=== PATIENT | male | born 1960 | race Native Hawaiian/Other Pacific Islander ===

== ENCOUNTER 2017-06-15 08:52 | Outpatient (CLI) | payer BC | END 2017-06-15 08:53 | disposition home or self-care (01) | LOC: BICCT 08:52 | PROVIDERS: ATTEND Family Medicine | DX: C64.1 Malignant neoplasm of right kidney, except renal pelvis (principal); K57.90 Diverticulosis of intestine, part unspecified, without perforation or abscess without bleeding; Z90.5 Acquired absence of kidney; Z90.49 Acquired absence of other specified parts of digestive tract | CPT/HCPCS: 74176 ==

== ENCOUNTER 2017-06-15 09:12 | Outpatient (CLI) | payer BC | END 2017-06-15 09:13 | disposition home or self-care (01) | LOC: BICRAD 09:12 | PROVIDERS: ATTEND Urology | DX: C64.9 Malignant neoplasm of unspecified kidney, except renal pelvis (principal) | CPT/HCPCS: 71046 ==

== ENCOUNTER 2018-02-21 14:46 | Outpatient (CLI) | payer BC ==
[~2018-02-21 14:46] MED LIST: Gadobenate Dimeglumine 529 MG/1 ML (20ML VIAL) ONE
--- NOTE | 2018-02-22 11:46 | MRI ---
MRI PELVIS WITH AND WITHOUT CONTRAST PROSTATE PROTOCOL: HISTORY: Prostate cancer. Elevated PSA. COMPARISON: None. TECHNIQUE: Multiplanar, multisequence MRI of the pelvis is performed using prostate protocol. The exam was revi ewed on the independent 3D work station. FINDINGS: The prostate measures 5 x 4.9 x 5 cm, for a volume of 59.03 mL. Peripheral zone: There is indistinct hypointensity on the ADC, in the peripheral zone, without a foc ally abnormal area. Transitional zone: At the base of the prostate, near 1 o'clock, extending into the urinary bladder, is a homogeneously, moderately hypointense on T2, 0.9 x 0.7 x 0.8 cm mass. This is within what appea rs to be a BPH nodule. The remainder of the transitional zone is without T2 signal abnormality. Th ere is associated marked increased signal on the diffusion weighted imaging with marked decreased sig nal on the ADC map with a type III-wash-in and wash-out kinetics. This region of interest is marked on the DynaCAD study. Neurovascular bundles: Intact. Lymph nodes: No adenopathy. Bones: On the large field of view T1 weighted sequence, there are no abnormal areas of marrow signal replacement to suggest osseous metastatic disease. Intrapelvic soft tissues: Moderate diverticular disease of the sigmoid colon without active current inflammation. Muscles: Normal. IMPRESSION: 1. PI-RADS 4: High (clinically significant prostate cancer is likely to be present). This is in the transitional zone, at the base of the prostate, extending into the urinary bladder. T his mass measures 0.9 x 0.7 x 0.8 cm, with T2 signal hypointensity and marked increased signal on dif fusion weighted imaging, with low ADC signal. 2. Neurovascular bundle: Intact. 3. No local regional adenopathy. 4. No evidence for osseous metastatic disease. 5 Moderate diverticular disease of the sigmoid colon without active inflammation. 6. Prostatic volume of 59 mL. POS: [facility]
== END 2018-02-21 14:47 | disposition home or self-care (01) ==
LOC: TBSIIMAG 14:46
PROVIDERS: ATTEND Urology
DX: R97.20 Elevated prostate specific antigen [PSA] (principal); N42.9 Disorder of prostate, unspecified; K57.30 Diverticulosis of large intestine without perforation or abscess without bleeding
CPT/HCPCS: 72197; A9579

== ENCOUNTER 2018-02-25 15:05 | Outpatient (CLI) | payer BC ==
[2018-02-25 15:48] LABS: Mean Corpuscular HGB CONC 33.7 g/dL (32.0-36.0); Mean Corpuscular Hemoglobin 28.8 pg (27.0-31.0); Mean Corpuscular Volume 85.5 fL (78.0-98.0); Mean Platelet Volume 9.2 fL (7.4-10.4); Platelet Count 176 thou/uL (130-400); RBC Distribution Width 12.6 % (11.5-14.5); Red Blood Cell (RBC) Count 5.19 mill/uL (4.70-6.10); White Blood Cell (WBC) Count 3.9 thou/uL (4.8-10.8)
[2018-02-25 15:51] LABS: Bilirubin Negative (Negative); Blood, Urine Negative (Negative); Clarity CLEAR (Clear); Glucose, Urine (Dipstick) Negative (Negative); Leukocyte Negative (Negative); Nitrite Negative (Negative); Protein, Urine (Dipstick) Negative (Neg-Trace); Specific Gravity, Urine 1.006 (1.002-1.036); Urobilinogen 0.2 mg/dL (0.2-1.0); pH, Urine 5.5 (5.0-9.0)
[2018-02-25 15:53] LABS: Bacteria/HPF None Seen HPF (None Seen); Hyaline Casts/LPF 0-3 HYALINE CAST LPF (0-3 Hyaline); RBC/HPF 0-3 HPF (0-3); Squamous Epithelial None Seen HPF (0-3); WBC/HPF None Seen HPF (0-3)
[2018-02-25 15:55] LABS: INR-International Normal Ratio 0.9; Prothrombin Time 12.7 SEC (12.0-14.7)
[2018-02-25 16:06] LABS: Anion Gap 12 mmol/L (10-20); BUN (Urea Nitrogen) 16 mg/dL (8.4-25.7); Calc. Creatinine Clearance 0 mL/min (70-130); Calcium 9.3 mg/dL (7.8-10.44); Carbon Dioxide 26 mmol/L (22-29); Chloride 103 mmol/L (98-107); Estimated GFR-MDRD 49; Glucose 109 mg/dL (70-105); Potassium 3.9 mmol/L (3.5-5.1); Sodium 137 mmol/L (136-145)
--- NOTE | 2018-02-25 17:48 | RAD ---
TWO VIEWS OF THE CHEST: 02/25/18 COMPARISON: 06/15/17 HISTORY: Preoperative radiograph. FINDINGS: Two views of the chest show normal sized cardiomediastinal silhouette. There is no evidence of consol idation, mass, or pleural effusion. The bones are unremarkable. IMPRESSION: No evidence of acute cardiopulmonary disease. POS: [facility]
== END 2018-02-25 15:06 | disposition home or self-care (01) ==
LOC: LABBT 15:05
PROVIDERS: ATTEND Urology
DX: Z01.818 Encounter for other preprocedural examination (principal); R97.20 Elevated prostate specific antigen [PSA]; R81 Glycosuria; N40.0 Benign prostatic hyperplasia without lower urinary tract symptoms; N42.32 Atypical small acinar proliferation of prostate; N28.9 Disorder of kidney and ureter, unspecified; Z87.448 Personal history of other diseases of urinary system
CPT/HCPCS: 71046; 80048; 81001; 85027; 85610; 85730; 87081; 87086; 93005; 93010

== ENCOUNTER 2018-03-02 10:01 | Day surgery (SDC) | payer BC ==
[2018-02-25 15:27] VITALS: BMI 32.2
[2018-03-02] MEDS ORDERED: Levofloxacin 500 mg/D5W 100 ml Premix Bag ONE (10:15)
[2018-03-02] MEDS ORDERED: cefTRIAXone\\ROCEPHIN 1 GM VIAL ONE (10:16)
[2018-03-02] MEDS ORDERED: Sodium Chloride 0.9% 0 ML ONE (10:16)
[2018-03-02] MEDS ORDERED: cefTRIAXone\\ROCEPHIN 2 GM in Sodium Chloride 0.9% 100 ML IVPB SCH (10:30)
[2018-03-02] MEDS ORDERED: Midazolam HCl 2 mg/2 ml Vial ONE (11:47)
[2018-03-02] MEDS ORDERED: Fentanyl 100 MCG/2 ML VIAL ONE (13:16)
[2018-03-02] MEDS ORDERED: Phenazopyridine HCl 97.5 MG TABLET ONE (14:43)
--- NOTE | 2018-03-02 15:07 | OP ---
DATE OF SERVICE: 03/02/2018 PREOPERATIVE DIAGNOSES: 1. A 57-year-old male with history of right renal cell carcinoma, status post right hand-assisted laparoscopic nephrectomy. 2. History of elevated PSA, prior prostate biopsy: Left mid medial atypical small acinar proliferation, 51 grams, no malignancy. 3. Persistently elevated PSA of 8.05 with unremarkable MARLEN. POSTOPERATIVE DIAGNOSES: 1. A 57-year-old male with history of right renal cell carcinoma, status post right hand-assisted laparoscopic nephrectomy. 2. History of elevated PSA, prior prostate biopsy: Left mid medial atypical small acinar proliferation, 51 grams, no malignancy. 3. Persistently elevated PSA of 8.05 with unremarkable MARLEN. PROCEDURES: Cystoscopy, UroNav MRI fusion biopsy of the prostate, 12 core standard needle biopsy performed. SURGEON: Codie Rodriguez D.O. ANESTHESIA: LMA. COMPLICATIONS: None apparent. DISPOSITION: To the recovery room in stable condition. ESTIMATED BLOOD LOSS: Less than 50 mL. SPECIMEN: 12-core standard biopsy. Region of interest x1 at the level of the right base transitional zone, biopsy x4 with a fusion biopsy. INDICATIONS FOR PROCEDURE AND HISTORY: Mr. Mcdaniel is a pleasant 57-year-old male who was traveling and developed gross hematuria, found to have a right renal mass, underwent right laparoscopic nephrectomy at [place]. This was performed in 2017. He was referred to me for elevated PSA of 7.4. We did perform a standard 12-core biopsy demonstrating a small minute focus of atypical acinar proliferation and was advised regarding restaging prostate biopsy due to increased risk of occult malignancy. He did have an MRI done with 3T magnet demonstrating a PI-RADS 4 lesion in the transitional zone at the right base prostate, this is within a component of hyperplasia of the prostate, located in the transitional zone. No other lesions interest noted. He presents today for MRI fusion biopsy. We discussed risks and complications and indications for the procedure. Risks and complications including, but not limited to, bleeding, pain, infection, injury to adjacent organs, urosepsis, significant blood in the urine and stool requiring secondary procedure. Questions were encouraged and answered and he desired to proceed without reservation. DESCRIPTION OF THE PROCEDURE: After an informed consent was signed, the patient was taken to the operating room, placed in a supine position and LMA anesthesia was administered. The genital area was prepped and draped and flexible cystoscopy performed. There was no evidence of anterior, posterior urethral stricture. Prostatic urethra demonstrated moderately obstructing prostate, we did into the bladder which did not demonstrate obvious intravesical median lobe of concern. It appears that what seen on the MRI is like a mass effect on the floor of the bladder due to hyperplasia of the prostate; however, no intravesical median lobe per se. The left UO was identified approximately 5-6 mm away from the bladder neck. The right UO was identified and likely due to defunctionalized right UO as he underwent right nephrectomy. No lesions were found. No bladder stones or bladder diverticulum. At this time, the cystoscope was removed and the bladder completely emptied. We then subsequently passed a transrectal ultrasound probe. We did a standard measurement of the prostate which demonstrated urethral length of 5.1, width of 5.4, height of 4.4, volume of 66.2 grams. The right mid to base of the prostate demonstrated likely an enlarged prostate adenoma with asymmetric enlargement of the right lobe. This was easily seen on the ultrasound. At this time, we then infused our MRI results with the ultrasound and the region of interest was seen at the right base transitional zone near the anterior aspect. We did obtain four specimen cores at the region of interest with fusion biopsy, then subsequently performed 12 standard core. He tolerated the procedure well and transferred to the recovery room in stable condition. He was discharged with ciprofloxacin for a course of 5 days, Colace p.r.n. We will follow up with me on 03/21/2018 He is to continue with Flomax, which I did provide him empirically due to extended core biopsy and enlarged prostate volume. He is to continue his Flomax at least until followup appointment. FRANCK
[2018-03-02] MEDS ORDERED: Ondansetron PF 4 MG/2 ML Vial ONE (17:23)
[2018-03-02] MEDS ORDERED: PROPOFOL 200 MG/20 ML VIAL ONE (17:23)
== END 2018-03-02 16:05 | disposition home or self-care (01) ==
LOC: SDC 10:01
PROVIDERS: ATTEND Urology
PROC: 0VB03ZX Excision of Prostate, Percutaneous Approach, Diagnostic (ICD-10-PCS; principal; 2018-03-02)
DX: C61 Malignant neoplasm of prostate (principal); N41.0 Acute prostatitis; N40.0 Benign prostatic hyperplasia without lower urinary tract symptoms; I10 Essential (primary) hypertension; E78.5 Hyperlipidemia, unspecified; Z85.528 Personal history of other malignant neoplasm of kidney; Z79.899 Other long term (current) drug therapy; Z90.5 Acquired absence of kidney
CPT/HCPCS: 88305; 88341; 88342; J0696; J1956; J2250; J2405; J2704; J3010; J7050

== ENCOUNTER 2018-05-18 13:15 | Outpatient (CLI) | payer BC ==
--- NOTE | 2018-05-19 10:05 | MRI ---
MRI OF THE PELVIS WITH AND WITHOUT IV CONTRAST: INDICATION: History of prostate cancer. TECHNIQUE: Multiplanar, multisequence MR images were obtained of the pelvis utilizing prostate cancer specific p rotocol with and without IV contrast. The patient received 20 cc MultiHance for the examination. Co mparisons are made with the prior MRI of the prostate with and without contrast performed at [facility] on 02/21/2018. The images were interpreted on a separate [employer] work stati on for multiperimetric evaluation. FINDINGS: The prostate measures 5.2 x 4.9 x 5.3 cm giving an estimated prosthetic volume of 60.53 cc. This is relatively stable to the prior exam. There is subtle feather-like hypointensity seen on the T2 weighted images within the peripheral zone. No definite area of restricted diffusion is seen on the ADC or DWI images within the peripheral zon e. The well circumscribed BPD nodule protruding into the left aspect of the urinary bladder base is rela tively stable in size measuring 1.5 x 1.8 cm on image 27 of series 3. This BPH nodule does demonstra te some heterogeneous T2 signal and areas of restricted diffusion and abnormal dynamic contrast enhan cement; however, this is within normal limits for a BPH nodule. No new suspicious abnormality is satnam dent. No neurovascular invasion is evident. No lymphadenopathy is noted. No bone marrow signal abnormalit y is evident. There are scattered diverticula involving the colon. There is a fat-containing left i nguinal hernia. IMPRESSION: PIRADS category 2 - low (clinically significant cancer is unlikely to be present). The small herniat ed BPH nodule into the left aspect of the urinary base is stable in size and appearance. There are s ome changes of prostatitis seen within the peripheral zone of the prostate. POS: [facility]
== END 2018-05-18 13:16 | disposition home or self-care (01) ==
LOC: TBSIIMAG 13:15
PROVIDERS: ATTEND Urology
DX: C61 Malignant neoplasm of prostate (principal)
CPT/HCPCS: 72197; 82565; A9579

== ENCOUNTER 2018-10-18 13:35 | Outpatient (CLI) | payer BC ==
--- NOTE | 2018-10-18 17:41 | MRI ---
MRI OF THE PROSTATE WITHOUT AND WITH CONTRAST: 10/18/18 COMPARISON: 05/18/18. HISTORY: Elevated PSA. TECHNIQUE: Multiplanar and multisequence MRI images were obtained in the prostate without and with IV contrast. This exam is evaluated on [employer] workstation. FINDINGS: There is moderate hypertrophy of the central gland consistent with BPH. There is a stable area of low T2 signal which is nonmass-like in the left peripheral zone of the prostate near the apex. There is a small cyst in the peripheral zone of the prostate in this region which is also stable. No restricte d diffusion is seen in the peripheral zone of the prostate. No low signal is seen in the ADC map in t he peripheral zone of the prostate. No suspicious mass-like T2 signal lesion is seen within the prost ate. The seminal vesicles are intact. The neurovascular bundles are intact. No pelvic adenopathy is seen. No abnormal enhancement is seen on this examination. No marrow signal abnormality is present. IMPRESSION: 1. PIRADS category 2 - low likelihood that a clinically significant cancer is present. 2. No significant change compared to the prior MRI of the prostate. POS: [facility]
== END 2018-10-18 13:36 | disposition home or self-care (01) ==
LOC: TBSIIMAG 13:35
PROVIDERS: ATTEND Urology
DX: R97.20 Elevated prostate specific antigen [PSA] (principal)
CPT/HCPCS: 36415; 72197; 81001; 82565; 84153; 87086

== ENCOUNTER 2019-01-25 07:11 | Outpatient (CLI) | payer BC ==
[2019-01-25 11:08] LABS: Mean Corpuscular HGB CONC 35.6 g/dL (32.0-36.0); Mean Corpuscular Hemoglobin 29.8 pg (27.0-31.0); Mean Corpuscular Volume 83.9 fL (78.0-98.0); Mean Platelet Volume 9.2 fL (7.4-10.4); Platelet Count 173 thou/uL (130-400); RBC Distribution Width 12.7 % (11.5-14.5); Red Blood Cell (RBC) Count 5.03 mill/uL (4.70-6.10)
[2019-01-25 11:16] LABS: PTT 30.8 SEC (22.9-36.1); Prothrombin Time 13.1 SEC (12.0-14.7)
[2019-01-25 11:31] LABS: Anion Gap 11 mmol/L (10-20); BUN (Urea Nitrogen) 14 mg/dL (8.4-25.7); Calc. Creatinine Clearance 0 mL/min (70-130); Calcium 8.9 mg/dL (7.8-10.44); Carbon Dioxide 27 mmol/L (22-29); Chloride 104 mmol/L (98-107); Estimated GFR-MDRD 44; Glucose 102 mg/dL (70-105); Potassium 3.9 mmol/L (3.5-5.1); Sodium 138 mmol/L (136-145)
[2019-01-25 11:57] LABS: Bacteria/HPF None Seen HPF (None Seen); Bilirubin Negative (Negative); Blood, Urine Negative (Negative); Clarity Clear (Clear); Glucose, Urine (Dipstick) Normal (Negative); Leukocyte Negative Leu/uL (Negative); Nitrite Negative (Negative); Protein, Urine (Dipstick) Negative (Neg-Trace); RBC/HPF 0-3 HPF (0-3); Squamous Epithelial 0-3 HPF (0-3); Urobilinogen Normal mg/dL (Less than 2); WBC/HPF 0-3 HPF (0-3)
--- NOTE | 2019-01-25 12:10 | RAD ---
2 VIEWS CHEST: Date: 01/25/19 COMPARISON: 02/25/18. HISTORY: Preoperative radiograph. FINDINGS: Two views of the chest show normal sized cardiomediastinal silhouette. There is no evidence of consol idation, mass, or pleural effusion. The bones are unremarkable. IMPRESSION: No evidence of acute cardiopulmonary disease. POS: [facility]
--- NOTE | 2019-01-29 17:10 | EKG ---
Test Reason : Blood Pressure : / mmHG Vent. Rate : 066 BPM Atrial Rate : 066 BPM P-R Int : 172 ms QRS Dur : 094 ms QT Int : 390 ms P-R-T Axes : 051 055 026 degrees QTc Int : 408 ms Poor data quality, interpretation may be adversely affected Normal sinus rhythm Normal ECG When compared with ECG of 25-FEB-2018 15:24, No significant change was found Confirmed by ISMAEL ZELAYA (2) on 01/29/2019 5:10:03 PM Referred By: VICK Confirmed By:ISMAEL ZELAYA
== END 2019-01-25 07:12 | disposition home or self-care (01) ==
LOC: LABBT 07:11
PROVIDERS: ATTEND Urology
DX: Z01.818 Encounter for other preprocedural examination (principal); C61 Malignant neoplasm of prostate
CPT/HCPCS: 71046; 80048; 81001; 85027; 85610; 85730; 87086; 93005; 93010

== ENCOUNTER 2019-02-08 06:02 | Day surgery (SDC) | payer BC ==
[2019-01-25 10:34] VITALS: BMI 31.9
[2019-02-08] MEDS ORDERED: Fentanyl 100 MCG/2 ML VIAL ONE (06:51)
[2019-02-08] MEDS ORDERED: Midazolam HCl 2 mg/2 ml Vial ONE (06:51)
[2019-02-08] MEDS ORDERED: Levofloxacin 500 mg/D5W 100 ml Premix Bag ONE (06:56)
[2019-02-08] MEDS ORDERED: Sodium Chloride 0.9% 100 ML ONE (06:56)
[2019-02-08] MEDS ORDERED: cefTRIAXone\\ROCEPHIN 2 GM VIAL ONE (06:56)
--- NOTE | 2019-02-08 09:14 | OP ---
DATE OF PROCEDURE: 02/08/2019 PREOPERATIVE DIAGNOSIS: A 58-year-old male with history of clinical T1C prostate cancer Ti score 3+3, on active surveillance. POSTOPERATIVE DIAGNOSIS: A 58-year-old male with history of clinical T1C prostate cancer [place] score 3+3, on active surveillance. PROCEDURE PERFORMED: Transrectal ultrasound volume study, 12-core needle biopsy staging. ANESTHESIA: TIVA. COMPLICATIONS: None apparent. SPECIMEN: 12-core needle biopsy of the prostate. DESCRIPTION OF PROCEDURE: After an informed consent was signed, the patient was taken to the operating room, placed in a supine position. TIVA anesthesia was administered, and the patient was placed in left lateral decubitus position with all pressure points padded and protected. A transrectal ultrasound probe was introduced, after a manual digital rectal exam demonstrating no evidence of nodularity. Volume study was performed demonstrating urethral length of 5.0, width of 5.0, height of 4.16, volume estimated to be 56 g. We subsequently then passed a needle biopsy through the transrectal ultrasound probe, obtaining a 12-core standard prostate biopsy specimen. He tolerated the procedure well and transported to the recovery room in stable condition. He will follow up with me on February 13 at 2:15 to review pathology. He is discharged with Omnicef 300 mg one p.o. b.i.d. x5 days. He is advised to continue his BPH medications, i.e. Flomax and Avodart and his blood pressure medications. Job ID: [id number]
== END 2019-02-08 09:35 | disposition home or self-care (01) ==
LOC: SDC 06:02
PROVIDERS: ATTEND Urology
PROC: BV49ZZZ Ultrasonography of Prostate and Seminal Vesicles (ICD-10-PCS; principal; 2019-02-08)
PROC: 0VB03ZX Excision of Prostate, Percutaneous Approach, Diagnostic (ICD-10-PCS; principal; 2019-02-08)
DX: C61 Malignant neoplasm of prostate (principal); I10 Essential (primary) hypertension; E78.5 Hyperlipidemia, unspecified; N28.9 Disorder of kidney and ureter, unspecified; Z79.899 Other long term (current) drug therapy
CPT/HCPCS: 88305; J0696; J1956; J2250; J3010; J3490

== ENCOUNTER 2019-04-10 08:15 | Outpatient (CLI) | payer BC ==
--- NOTE | 2019-04-10 10:19 | MRI ---
MRI Pelvis W WO Con History: C61 prostate cancer. Comparison: MRI pelvis October 18, 2018. Findings: Multiplanar multisequence MRI of the pelvis was performed prior to and after the intravenous administ ration of contrast. The exam was reviewed on an independent 3-D workstation. Prostate measures 5 x 4.7 x 5.5 cm for a volume of 54.68 cc. Peripheral zone: There are no abnormal foci of diffusion restriction within the peripheral zone. No f ocal markedly hypointense focus on the ADC or markedly hyperintense focus on DWI. Transitional zone: There is no lentiform or not circumscribed homogeneously moderately hyperintense f ocus. There are, however, heterogeneous signal intensity encapsulated nodules. Prostatic capsule: Intact Neurovascular bundles: Intact Seminal vesicles: Intact Urinary bladder: Intact Bones: There is a broad-based posterior disc-osteophyte complex L5-S1. On the T1 weighted imaging seq uence there are no abnormal foci of marrow signal replacement to suggest osseous metastatic disease. No adenopathy. Intrapelvic soft tissues: Unremarkable. Impression: 1. PI-RADS Category 2: Low (clinically significant prostate cancer is unlikely to be present). 2. Intact prostatic capsule, neurovascular bundles, and urinary bladder. 3. No evidence for osseous or local regional randa metastatic disease. Transcribed Date/Time: 04/10/2019 10:26 AM
[2019-04-10] MEDS ORDERED: Magnevist 469MG/ML 20 ML VIAL ONE (11:22)
== END 2019-04-10 08:16 | disposition home or self-care (01) ==
LOC: TBSIIMAG 08:15
PROVIDERS: ATTEND Urology
DX: C61 Malignant neoplasm of prostate (principal)
CPT/HCPCS: 72197; 82565; A9579

== ENCOUNTER 2019-07-03 10:57 | Outpatient (CLI) | payer BC ==
--- NOTE | 2019-07-03 11:23 | RAD ---
EXAM: Chest 2 views: HISTORY: Renal cell carcinoma right kidney, follow-up COMPARISON: 01/25/2019 FINDINGS: Heart size:Within normal limits. Lungs:Clear of acute process. Atherosclerotic changes of the aorta. No confluent pneumonia, overt edema, pleural effusion, pneumothorax, or other significant acute proce ss. IMPRESSION: Stable exam. Atherosclerosis of the aorta. No acute intrathoracic disease.
--- NOTE | 2019-07-03 11:26 | CT ---
EXAM: CT abdomen and pelvis without contrast PROVIDED CLINICAL HISTORY: History of renal cell carcinoma status post right nephrectomy COMPARISON: 06/15/2017 FINDINGS: The visualized lung bases are free of significant opacity. Postoperative changes of right nephrectomy are demonstrated without evidence for soft tissue mass in the renal fossa. The solid abdominal organs are suboptimally evaluated in the absence of IV contrast material but demo nstrate an otherwise unremarkable unenhanced CT appearance. Changes of prior cholecystectomy are seen. There is no bowel dilatation, inflammatory fat stranding, free fluid or lymph node enlargement appare nt. Scattered vascular calcifications are seen. Scattered colonic diverticula are noted. The osseous structures demonstrate no concerning lytic or blastic lesions. IMPRESSION: Stable exam.
== END 2019-07-03 10:58 | disposition home or self-care (01) ==
LOC: BICCT 10:57
PROVIDERS: ATTEND Urology
DX: C64.1 Malignant neoplasm of right kidney, except renal pelvis (principal); I70.0 Atherosclerosis of aorta
CPT/HCPCS: 71046; 74176

== ENCOUNTER 2020-03-20 09:21 | Outpatient (CLI) | payer BC ==
[~2020-03-20 09:21] MED LIST changes: -Gadobenate Dimeglumine 529 MG/1 ML (20ML VIAL) ONE; +Magnevist 469MG/ML 20 ML VIAL ONE
--- NOTE | 2020-03-20 11:14 | MRI ---
EXAM: MRI of the pelvis/prostate without and with contrast HISTORY: Prostate cancer COMPARISON: 04/10/2019 TECHNIQUE: Multiplanar multisequence MR images were obtained of the pelvis without and with IV contra st. Evaluation of this exam was performed with a [employer] workstation. FINDINGS: Central gland: Moderate hypertrophy of the central gland consistent with BPH. Stable volume is estima marsha at 46 mL. No suspicious low T2 signal lesion is seen. Peripheral zone: No restricted diffusion is seen. No low signal on ADC map. There is subtle hazy nonf ocal low T2 signal in the left peripheral zone of the prostate. Seminal vesicles: Intact without abnormality Neurovascular bundles: Intact Pelvic lymph nodes: No pelvic adenopathy Other visualized intrapelvic structures: Unremarkable Osseous structures: No marrow signal abnormality IMPRESSION: PI-RADS Category 2-low likelihood that a clinically significant cancer is present.
== END 2020-03-20 09:22 | disposition home or self-care (01) ==
LOC: TBSIIMAG 09:21
PROVIDERS: ATTEND Urology
DX: C61 Malignant neoplasm of prostate (principal)
CPT/HCPCS: 72197

== ENCOUNTER 2020-06-24 10:44 | Outpatient (CLI) | payer BC ==
--- NOTE | 2020-06-24 11:30 | RAD ---
EXAM: Two views chest PROVIDED CLINICAL HISTORY: Prostate cancer, renal cell carcinoma right kidney. COMPARISON: 07/03/2019 FINDINGS: Cardiac silhouette and pulmonary vasculature are within normal limits. The lungs are clear. No discr ete pulmonary nodule or mass is seen. No obvious lytic or sclerotic osseous lesion is appreciated. Chest is stable compared to prior exam. IMPRESSION: No acute cardiopulmonary process.
== END 2020-06-24 10:45 | disposition home or self-care (01) ==
LOC: BICRAD 10:44
PROVIDERS: ATTEND Urology
DX: C61 Malignant neoplasm of prostate (principal); C64.1 Malignant neoplasm of right kidney, except renal pelvis
CPT/HCPCS: 71046

== ENCOUNTER 2021-08-08 12:53 | Outpatient (CLI) | payer BC, OTHER | END 2021-08-08 12:54 | disposition home or self-care (01) | LOC: BICCT 12:53 | PROVIDERS: ATTEND Urology | DX: C64.1 Malignant neoplasm of right kidney, except renal pelvis (principal); N28.9 Disorder of kidney and ureter, unspecified; K57.30 Diverticulosis of large intestine without perforation or abscess without bleeding; Z90.5 Acquired absence of kidney; Z90.49 Acquired absence of other specified parts of digestive tract | CPT/HCPCS: 74150 ==

== ENCOUNTER 2022-04-21 12:43 | Outpatient (CLI) | payer OTHER ==
[2022-04-21] MEDS ORDERED: Magnevist 469MG/ML 20 ML VIAL ONE (16:16)
== END 2022-04-21 12:44 | disposition home or self-care (01) ==
LOC: TBSIIMAG 12:43
PROVIDERS: ATTEND Urology
DX: C61 Malignant neoplasm of prostate (principal)
CPT/HCPCS: 72197; A9579